=== PATIENT | male | born 1975 | race Caucasian/White ===

== ENCOUNTER 2021-07-13 12:10 | Outpatient (CLI) | payer BC | END 2021-07-13 12:11 | disposition home or self-care (01) | LOC: CSHRAD 12:10 | PROVIDERS: ATTEND Internal Medicine Gastroenterology | DX: R11.2 Nausea with vomiting, unspecified (principal); R10.30 Lower abdominal pain, unspecified; K59.00 Constipation, unspecified | CPT/HCPCS: 74022 ==